=== PATIENT | female | born 1975 | race African-American/Black ===

== ENCOUNTER 2016-06-13 11:18 | Emergency (ER) | payer OTHER ==
[~2016-06-13] VITALS: Ht 154.9 cm; Wt 140.2 kg
[~2016-06-13 11:18] MED LIST: ACYCLOVIR 400400 M1; AMBIEN 10 MG TA10 MG PO; CELEXA 20 MG TA20 MG PO; CELEXA40 MG; CLONAZEPAM 1 MG1 M1; CLONAZEPAM 1 MG1 M1 PO; DEPAKOTE500 MG; DESYREL300 MG; FUROSEMIDE 20 M20 M1 PO; HYDROCODON-ACE1 EAC7; IODINE1 GM MC; LASIX 20 MG TAB20 MG PO; NAPROSYN500 MG PO; NORCO 5-325 TA1 EACH PO; PREDNISONE 20 M20 MG PO; RISPERDAL2 MG; RISPERIDONE1 MG PO; SSD CREAM 1% 5050 G1 TOP; STOOL SOFTENER50 MG; TESSALON200 MG PO; XANAX 0.25 MG0.25 MG PO; XANAX1 MG PO; ZOFRAN ODT4 MG PO; ZPAK PO; [UNRECOGNIZED DRUG - OTHER]; [UNRECOGNIZED DRUG - OTHER]; [UNRECOGNIZED DRUG - OTHER]
[2016-06-13 11:19] VITALS: BP 157/100
[2016-06-13] MEDS ORDERED: CONTRAVE ER 8-1 EACH PO (11:22)
[2016-06-13] MEDS ORDERED: TESSALON PERLE100 MG PO (11:54)
== END 2016-06-13 12:04 | disposition home or self-care (01) ==
LOC: ER 11:18
DX: J30.2 Other seasonal allergic rhinitis (principal); J06.9 Acute upper respiratory infection, unspecified; M19.90 Unspecified osteoarthritis, unspecified site; F41.9 Anxiety disorder, unspecified; F32.9 Major depressive disorder, single episode, unspecified; Z88.5 Allergy status to narcotic agent

== ENCOUNTER 2018-04-29 14:43 | Emergency (ER) | payer OTHER ==
[~2018-04-29] VITALS: Ht 154.9 cm; Wt 140.2 kg
[~2018-04-29 14:43] MED LIST changes: +CONTRAVE ER 8-1 EACH PO; +TESSALON PERLE100 MG PO
[2018-04-29] MEDS ORDERED: FLONASE 0.05%50 MCG NASAL (15:01)
[2018-04-29] MEDS ORDERED: BREO ELLIPTA 11 EACH INH (15:01)
[2018-04-29] MEDS ORDERED: SPRINTEC1 EACH PO (15:02)
[2018-04-29] MEDS ORDERED: ACYCLOVIR 400400 MG PO (15:03)
[2018-04-29] MEDS ORDERED: CELEBREX 200 M200 M1 PO (15:03)
[2018-04-29 15:19] LABS: URINE BILIRUBIN NEGATIVE (Negative); URINE BLOOD TRACE (Negative); URINE CLARITY CLEAR; URINE COLOR YELLOW; URINE GLUCOSE-RANDOM* NEGATIVE (Negative); URINE KETONES NEGATIVE (Negative); URINE LEUKOCYTES-REFLEX NEGATIVE (Negative); URINE NITRITE-REFLEX NEGATIVE (Negative); URINE PROTEIN (DIPSTICK) NEGATIVE (Negative); URINE SPECIFIC GRAVITY <= 1.005 (1.005-1.035); URINE UROBILINOGEN 0.2 E.U./dl (0.2-1.0)
[2018-04-29 16:07] LABS: ABSOLUTE NEUTROPHILS 4.4 thou/uL (1.4-8.2); BASOPHILS 0.6 % (0.0-2.0); EOSINOPHILS 0.9 % (0.0-3.0); HEMATOCRIT 36.4 % (37.0-47.0); HEMOGLOBIN 12.6 gm/dL (12.0-15.0); LYMPHOCYTES 29.1 % (24.0-44.0); MCH 30.1 pg (26.0-34.0); MCHC 34.7 g/dL (28.0-37.0); MCV 86.7 fL (80.0-100.0); MONOCYTES 7.5 % (1.0-8.0); PLATELET COUNT 360 thou/uL (150-400); POLYS 61.9 % (36.0-66.0); RDW 13.4 % (10.5-14.5); WBC 7.1 thou/uL (4.0-11.0)
[2018-04-29 16:20] LABS: CALCIUM 8.7 mg/dL (8.5-10.1); CREATININE 0.8 mg/dL (0.6-1.0); POTASSIUM 3.6 mmol/L (3.5-5.1)
[2018-04-29 16:25] LABS: ALBUMIN 3.3 g/dL (3.4-5.0); TOTAL BILIRUBIN 0.2 mg/dL (<0.1-1.0); TOTAL PROTEIN 7.4 g/dL (6.4-8.2)
[2018-04-29] MEDS ORDERED: NAPROSYN500 MG PO (18:23)
[2018-04-29 18:50] VITALS: BP 134/80
== END 2018-04-29 18:51 | disposition home or self-care (01) ==
LOC: ER 14:43
PROVIDERS: Physician Assistant
DX: D25.1 Intramural leiomyoma of uterus (principal); F41.9 Anxiety disorder, unspecified; F32.9 Major depressive disorder, single episode, unspecified; M19.90 Unspecified osteoarthritis, unspecified site; Z88.5 Allergy status to narcotic agent

== ENCOUNTER → 2018-04-30 | Outpatient (CLI) | payer OTHER ==
[~2018-04-30] MED LIST changes: +ACYCLOVIR 400400 MG PO; +BREO ELLIPTA 11 EACH INH; +CELEBREX 200 M200 M1 PO; +FLONASE 0.05%50 MCG NASAL; +SPRINTEC1 EACH PO
--- NOTE | 2018-05-15 06:28 | SPIROMETRY ---
[facility] [place] [address] SPIROMETRY Name: CHILANGO YOUNG Room #: LEAH ROSIBEL López#: [id number] ������������������ Admission: 04/30/18 ������������������ Attend Phys: Physician not on staff Discharge: ������������������ Date of : 75 Report #: [id number] THIS REPORT FOR: //name// >> SPIROMETRY: (BTPS) Height: 61 in cm Weight: 309 lbs kg Exam Date: 04/30/18 PRE-RX POST-RX PRED BEST %PRED BEST %PRED %CHG FVC LITERS . 2.96 . 2.50 . 84 . 2.89 . 98 . 16 FEV1 LITERS . 2.51 . 2.11 . 84 . 2.23 . 89 . 6 FEV1/FVC % . 85 . 84 . 99 . 77 . 90 . -9 VGR87-29% L/Sec . 2.92 . 2.17 . 74 . 2.08 . 71 . -4 PEF L/SEC . 5.78 . 3.56 . 62 . 4.12 . 71 . 16 FEF50/FIF50 UNITLESS . <1.00 . 1.20 . . 1.53 . . 27 >> INTERPRETATION/IMPRESSION: CC: EVELIO Cardona Physician staff DATE OF SERVICE: 04/30/2018 SPIROMETRY REPORT SPIROMETRY: FEV1 is 2.11 liters (84%), FVC is 2.50 liters (84%). FEV1/FVC ratio is 84%. Post-bronchodilator response therapy with significant response. IMPRESSION: Spirometry function is essentially normal, with a significant response to bronchodilator therapy. ��������������������������������������������� <ELECTRONICALLY SIGNED> ���������������������������������������� By: Clifford Chery MD ��������������������������������������������� 05/15/18 0628 Clifford Chery MD /nt
== END ==
LOC: PUL 09:20
DX: R05 Cough (principal)

== ENCOUNTER 2018-08-12 09:09 | Emergency (ER) | payer OTHER ==
[~2018-08-12] VITALS: Ht 154.9 cm; Wt 134.3 kg
[2018-08-12 10:47] LABS: URINE BILIRUBIN NEGATIVE (Negative); URINE BLOOD TRACE (Negative); URINE CLARITY CLEAR; URINE COLOR YELLOW; URINE GLUCOSE-RANDOM* NEGATIVE (Negative); URINE KETONES NEGATIVE (Negative); URINE LEUKOCYTES-REFLEX NEGATIVE (Negative); URINE NITRITE-REFLEX NEGATIVE (Negative); URINE PROTEIN (DIPSTICK) NEGATIVE (Negative); URINE SPECIFIC GRAVITY <= 1.005 (1.005-1.035); URINE UROBILINOGEN 0.2 E.U./dl (0.2-1.0)
[2018-08-12] MEDS ORDERED: PREDNISONE 10 M10 MG PO ×3 (10:52→11:08)
[2018-08-12] MEDS ORDERED: NORFLEX100 MG PO ×3 (10:52→11:08)
[2018-08-12 11:20] VITALS: BP 131/78
== END 2018-08-12 11:22 | disposition home or self-care (01) ==
LOC: ER 09:09
PROVIDERS: Physician Assistant
DX: M54.41 Lumbago with sciatica, right side (principal); M54.14 Radiculopathy, thoracic region; M19.90 Unspecified osteoarthritis, unspecified site; F41.9 Anxiety disorder, unspecified; F32.9 Major depressive disorder, single episode, unspecified; Z88.5 Allergy status to narcotic agent